=== PATIENT | male | born 1980 | race African-American/Black ===

== ENCOUNTER 2023-12-08 02:44 | Emergency (ER) | payer OTHER, SELFPAY ==
--- NOTE | ~2023-12-08 | XR_ITS ---
EXAMINATION: XR hand RT min 3V DATE: 12/08/2023 03:40 INDICATION: Dog bite to the distal phalanx of the right third digit TECHNIQUE: Posteroanterior, oblique and lateral views of the right hand were obtained. COMPARISON: None. FINDINGS: Extra articular fracture with small minimally displaced bone fragment along the radial margin of the base of the tuft of the right third distal phalanx. This should be considered open/compound given the reported clinical history of the penetrating dog bite injury with laceration. Bone alignment is othe rwise normal. No other fractures identified. Joint spaces are normal. IMPRESSION: 1. Small open/compound fracture at the radial side of the tuft of the right third distal phalanx. Dr. Torres discussed these findings with Dr. Sanchez at 7:39 AM. Reviewed, dictated and finalized at location A. IMPRESSION: 1. Small open/compound fracture at the radial side of the tuft of the right thi rd distal phalanx. Dr. Torres discussed these findings with Dr. Sanchez at 7:39 AM.
[2023-12-08 02:47] VITALS: BP 128/80; PULSE 122; RESP 17; TEMP 37.1; O2SAT 99
--- NOTE | 2023-12-08 03:10 | ED.GENADULT ---
HPI - General Adult General Chief complaint: Animal Bite Stated complaint: dog bite finger Time Seen by Provider: 12/08/23 02:53 History of Present Illness HPI narrative: this is a 43-year-old male presenting ED with chief complaint of dog bite. Patient is breaking up a fight between his own dogs and he was bit on the tip of his right middle finger. He has a small laceration. No other injuries. Related Data Allergies Allergy/AdvReac Type Severity Reaction Status Date / Time aspirin Allergy Unknown Unknown Verified 01/19/19 00:25 Exam Narrative: APPEARANCE: No apparent distress. Head: atraumatic. EYES: EOMI, NOSE: Atraumatic NECK: Trachea midline RESPIRATORY: No increased rate of breathing CARDIOVASCULAR: RRR, ABDOMINAL: Non-distended MUSCULOSKELETAl: The patient is a 1 cm laceration to the pad of his 3rd middle finger on the right hand. No exposed bone/tendon NEURO: Alert. Moving 4/4 extremities SKIN:: Warm, dry. Normal color PSYCHIATRIC: Normal affect Course Vital Signs Vital signs: Vital Signs Temperature 98.8 F 12/08/23 02:47 Pulse Rate 122 H 12/08/23 02:47 Respiratory Rate 17 12/08/23 02:47 Blood Pressure 128/80 12/08/23 02:47 Pulse Oximetry 99 12/08/23 02:47 Oxygen Delivery Room Air 12/08/23 02:47 Temperature 98.8 F 12/08/23 02:47 Pulse Rate 122 H 12/08/23 02:47 Respiratory Rate 17 12/08/23 02:47 Blood Pressure 128/80 12/08/23 02:47 Pulse Oximetry 99 12/08/23 02:47 Oxygen Delivery Room Air 12/08/23 02:47 Medical Decision Making [facility] Narrative Medical decision making narrative: -Course: 43-year-old presenting with dog bite. Patient given pain control and tetanus and antibiotics. No fractures on x-ray. Wound left open to lower risk of infection. Wound cleaned under the sink. Patient discharged course of Augmentin with primary care follow-up. Given return precautions for infection -Interventions: [place], tetanus, Augmentin -Shared decision making / Disposition: discharged -RX Augmentin, Motrin Tylenol Vital Signs Vital Signs: Vital Signs Temperature 98.8 F 12/08/23 02:47 Pulse Rate 122 H 12/08/23 02:47 Respiratory Rate 17 12/08/23 02:47 Blood Pressure 128/80 12/08/23 02:47 Pulse Oximetry 99 12/08/23 02:47 Oxygen Delivery Room Air 12/08/23 02:47 Temperature 98.8 F 12/08/23 02:47 Pulse Rate 122 H 12/08/23 02:47 Respiratory Rate 17 12/08/23 02:47 Blood Pressure 128/80 12/08/23 02:47 Pulse Oximetry 99 12/08/23 02:47 Oxygen Delivery Room Air 12/08/23 02:47 Discharge Plan Discharge Clinical Impression: Bite by animal Patient Disposition: Home, Self-Care Condition: Stable Instructions: Antibiotic Form, Animal Bite (ED) Additional Instructions: Use Motrin Tylenol for pain control. Take Augmentin as prescribed. If you develop signs of infection please return to the ED immediately. Otherwise follow-up with your primary care physician in next 3-5 days. Prescriptions: New ibuprofen 800 mg tablet 800 mg PO TID PRN (Reason: pain) 7 Days Qty: 21 0RF acetaminophen 500 mg tablet 1,000 mg PO TID PRN (Reason: jl) 7 Days Qty: 42 0RF amoxicillin-pot clavulanate 875-125 mg tablet 1 tablet PO Q12H Qty: 20 0RF Follow-up/Referrals: UNKNOWN,DOCTOR [Primary Care Provider] -
[2023-12-08] MEDS: HYDROcodone/acetaminophen (*CRX) 5-325 MG TABLET 1 TAB PO (03:19)
[2023-12-08] MEDS: AMOXICILLIN/CLAVULANATE K 875-125 MG TAB 1 TABLET PO (03:19)
[2023-12-08] MEDS: TETANUS,DIPHTHERIA,AC PERTUSSIS ADULT (0.5 ML) BOOSTRIX IM (03:19)
== END 2023-12-08 04:06 | disposition home or self-care (01) ==
PROVIDERS: Emergency Provider Emergency Medicine
DX: S61.252A Open bite of right middle finger without damage to nail, initial encounter (principal); Z23 Encounter for immunization; W54.0XXA Bitten by dog, initial encounter
CPT/HCPCS: 73130; 90471; 90715; 99283; A9270

== ENCOUNTER 2025-01-01 09:24 | Emergency (ER) | payer OTHER, SELFPAY ==
--- NOTE | ~2025-01-01 | XR_ITS ---
EXAMINATION: XR shoulder RT min 2V DATE: 01/01/2025 10:11 INDICATION: Ongoing right shoulder pain TECHNIQUE: AP internally and externally rotated, AP oblique externally rotated and transscapular Y vi ews of the right shoulder were obtained. COMPARISON: None FINDINGS: Normal alignment. No fracture. Glenohumeral joint is normal. Mild acromioclavicular osteoarthritis. Soft tissues are unremarkable. Right lung is clear. IMPRESSION: Mild right acromioclavicular osteoarthritis. No acute osseous abnormality. Reviewed, dictated and finalized at location A.
[2025-01-01 09:48] VITALS: BP 150/79; PULSE 100; RESP 18; TEMP 37; O2SAT 98
--- NOTE | 2025-01-01 10:36 | ED.UPPEXIN ---
HPI - Extremity Injury (Upper) General Chief Complaint: Extremity Injury, Upper Stated Complaint: requesting R shoulder xray Time Seen by Provider: 01/01/25 10:28 History of Present Illness HPI narrative: 44-year-old male presents to the emergency department for right shoulder pain for the past few weeks. Patient states the pain is located stress which was right shoulder along the shoulder blade into the shoulder joint. He states the pain is worse with movement of his right shoulder and when he lays on his right shoulder at night. He states he works at a [employer] and uses his arms and hands a lot at work which seem to exacerbate his symptoms. Denies direct injury or trauma. No fevers. Denies other complaints. Related Data Allergies Allergy/AdvReac Type Severity Reaction Status Date / Time aspirin Allergy Unknown Unknown Verified 01/13/24 15:55 Review of Systems Review of Systems: All systems reviewed & are unremarkable except as noted in HPI and below PMFSH Social History Social History Smoking status: Never smoker Exam Narrative: GENERAL: Well-appearing, well-nourished, and in no acute distress. HEAD: Normocephalic, atraumatic. ENT: Nares clear, no rhinorrhea or epistaxis. Mucous membranes moist. NECK: Supple. No midline cervical spinous tenderness, crepitus, step-offs or deformities BACK: No midline thoracic lumbar spinous tenderness, crepitus, step-offs or deformities. Tenderness to the right paraspinous muscles CHEST: Clear to auscultation. No respiratory distress. HEART: Regular rate and rhythm. No murmur heard. Normal peripheral pulses. EXTREMITIES: RUE: Mild tenderness to palpation of the posterior shoulder, acromion, AC joint and proximal humerus. No obvious swelling or deformity. Patient has full active passive range of motion of shoulder without difficulty. Pain is reproduced with Neer's test. Radial pulses 2+. Radial, median, ulnar and axillary nerves and test. Strength 5/5. SKIN: Warm, dry, no rash. NEURO: No focal deficits. Alert and oriented x3 Course Vital Signs Vital signs: Vital Signs Temperature 98.6 F 01/01/25 09:48 Pulse Rate 100 01/01/25 09:48 Respiratory Rate 18 01/01/25 09:48 Blood Pressure 150/79 H 01/01/25 09:48 Pulse Oximetry 98 01/01/25 09:48 Oxygen Delivery Room Air 01/01/25 09:48 Temperature 98.6 F 01/01/25 09:48 Pulse Rate 100 01/01/25 09:48 Respiratory Rate 18 01/01/25 09:48 Blood Pressure 150/79 H 01/01/25 09:48 Pulse Oximetry 98 01/01/25 09:48 Oxygen Delivery Room Air 01/01/25 09:48 MDM - Extremity Injury (Upper) MDM Narrative Medical decision making narrative: 44-year-old male presents to the emergency department for atraumatic right shoulder pain for the past several weeks. Pain is worse with movement of the shoulder and when lying on his right shoulder at night. Vital signs with elevated blood pressure, otherwise unremarkable. Exam is notable for the above. Patient is neurovascularly intact. X-ray of the shoulder shows mild right AC osteoarthritis with no acute osseous abnormality. Patient updated on results. Suspect shoulder strain versus shoulder impingement. Will provide Flexeril, naproxen, lidocaine patches. Advised follow-up with PCP. Discussed strict ED return precautions. Patient is agreeable with the plan verbalized understanding. Discharged in stable condition. Discharge Plan Discharge Clinical Impression: Acute pain of right shoulder Patient Disposition: Home Condition: Stable Instructions: Antibiotic Form, Shoulder Pain (ED) Additional Instructions: Please rest, take medications as prescribed use warm compresses as discussed. Follow-up with PCP. Return to the emergency department if he develops significantly worsening pain, chest pain shortness of breath, fever or other concerning symptoms. Patient Language: Armenian Prescriptions: New cyclobenzaprine 10 mg tablet 10 mg PO TID PRN (Reason: muscle spasm) Qty: 14 0RF lidocaine 5 % adhesive patch,medicated 1 patch topical DAILY Qty: 15 0RF Rx Instructions: leave on most painful area for up to 12 hrs. do not use more than 1 patch in a 24-hour period. ibuprofen 800 mg tablet 800 mg PO TID PRN (Reason: pain) Qty: 20 0RF No Action ibuprofen 800 mg tablet 800 mg PO TID PRN (Reason: pain) 7 Days Qty: 21 0RF acetaminophen 500 mg tablet 1,000 mg PO TID PRN (Reason: jl) 7 Days Qty: 42 0RF amoxicillin-pot clavulanate 875-125 mg tablet 1 tablet PO Q12H Qty: 20 0RF Follow-up/Referrals: Cristy Larios DO [Physician] - PHYSICIAN,INSURANCE AGENCY SALES MANAGER [Primary Care Provider] -
[2025-01-01 10:56] VITALS: BP 146/112; PULSE 94; TEMP 36.8; O2SAT 98
== END 2025-01-01 11:09 | disposition home or self-care (01) ==
LOC: ANHED 10:53
PROVIDERS: Emergency Provider Physician Assistant
DX: M25.511 Pain in right shoulder (principal)
CPT/HCPCS: 73030; 99283

== ENCOUNTER 2025-01-28 19:23 | Emergency (ER) | payer OTHER, SELFPAY ==
--- NOTE | ~2025-01-28 | CT_ITS ---
Noncontrast CT scan of the cervical spine Technique: Multiple contiguous axial [address] images of the cervical spine were obtained and rec onstructed in 2D sagittal and coronal planes on the acquisition scanner. Dose reduction technique was used on this scan by utilizing automated exposure control, adjustment of the mA and/or kV according to patient size. The dose-length product (DLP) was 596.43 mGy-cm. Clinical History: Pain Findings: No fractures or dislocations. There is mild reversal of normal cervical lordosis. There is moderate degenerative distended C5-C6 and C6-C7. There is scattered facet joint degenerative changes . There is left neural foraminal narrowing at C3-C4. No prevertebral soft tissue swelling. Impression: No fracture or subluxation of the cervical spine. Reviewed, dictated and finalized at [facility]. Impression: No fracture or subluxation of the cervical spine.
--- NOTE | ~2025-01-28 | CT_ITS ---
Noncontrast CT scan of the right shoulder spine CLINICAL HISTORY: Pain, ecchymosis TECHNIQUE: Axial noncontrast imaging of the right shoulder spine was performed. Sagittal and coronal reformatted images were constructed. Dose reduction technique was used on this scan by utilizing auto mated exposure control and iterative reconstruction technique. The dose-length product (DLP) was 562. 87 mGy-cm. FINDINGS: No acute fracture or dislocation seen. Joint spaces are preserved. No significant degenerat donna change. No erosive change evident. No joint effusion identified. Visualized musculature is unremarkable. No soft tissue mass or fluid collection. Visualized right cuco g is clear. Impression: Unremarkable exam. Reviewed, dictated and finalized at location M. Impression: Unremarkable exam.
--- NOTE | ~2025-01-28 | CT_ITS ---
Noncontrast CT scan of the right humerus spine CLINICAL HISTORY: Pain, ecchymosis TECHNIQUE: Axial noncontrast imaging of the right humerus spine was performed. Sagittal and coronal r eformatted images were constructed. Dose reduction technique was used on this scan by utilizing autom ated exposure control and iterative reconstruction technique. The dose-length product (DLP) was 898.6 7 mGy-cm. FINDINGS: No acute fracture or dislocation seen. Visualized joint spaces are intact. No degenerative, erosive change. No joint effusion identified. Visualized musculature unremarkable. No soft tissue mass or fluid collection seen. Subcutaneous soft tissues are unremarkable. Impression: No significant abnormality seen. Reviewed, dictated and finalized at location . Impression: No significant abnormality seen.
[2025-01-28 19:39] VITALS: BP 148/81; PULSE 92; RESP 18; TEMP 36.8; O2SAT 100
[2025-01-28 22:56] VITALS: PULSE 91; RESP 14; O2SAT 98
[2025-01-28 23:00] VITALS: PULSE 102; RESP 17; O2SAT 100
[2025-01-28 23:01] VITALS: BP 147/86; PULSE 93; RESP 30; O2SAT 100
[2025-01-28 23:37] VITALS: PULSE 77; RESP 15; O2SAT 99
[2025-01-28 23:45] VITALS: PULSE 88; RESP 16; O2SAT 99
[2025-01-29] VITALS (18 sets, daily range): BP systolic 97–145; BP diastolic 69–93; PULSE 62–108; RESP 11–29; O2SAT 97–100
--- NOTE | 2025-01-29 00:25 | ED.UPPEXIN ---
HPI - Extremity Injury (Upper) General Chief Complaint: Extremity Injury, Upper Stated Complaint: Pain right shoulder/arm- Time Seen by Provider: 01/28/25 23:32 Source: patient Mode of arrival: ambulatory Limitations: no limitations History of Present Illness HPI narrative: Patient presents with R shoulder / arm pain, going on 1 month. Seen for the same 2 weeks ago but now with new/unexplained bruise at bicep and intermittent numbness of his ulnar aspect forearm and palm of hand. Denies any preceding trauma or interval trauma. Denies other random bruising or unexplained bleeding or issues with bleeding such as from gums. Had been prescribed flexeril and ibuprofen but out of these meds. Still has lidocaine patches. Did not go to PCP/ED follow up appointment that had been made for this morning. Related Data Allergies Allergy/AdvReac Type Severity Reaction Status Date / Time acetaminophen Allergy Intermediate Hives Verified 01/28/25 19:41 [facility] Social History Social History Smoking status: Never smoker Occupation/Education: occupation Exam Narrative: GENERAL: Well-appearing, well-nourished, and in no acute distress. HEAD: Normocephalic, atraumatic. EYES: Non injected, non icteric ENT: Nares clear, no rhinorrhea or epistaxis. Gross auditory acuity intact. NECK: Supple. No meningismus. CHEST: Speaking in full sentences. No respiratory distress. HEART: Regular rate and rhythm. . ABDOMEN: Soft, nondistended. No rigidity or guarding. Not peritoneal EXTREMITIES: Normal range of motion. No upper extremity edema. 5/5 strength with elbow flexion/extension and full ROM of wrist and fingers. Radial pulse intact, not diminished. SKIN: Warm, dry. Ecchymotic lesion mid right upper extremity. No hematoma. No erythema/induration along forearm or hand. COmpartments soft. NEURO: No focal deficits. Alert and oriented. Answering questions. Following commands. Normal speech without aphasia or dysarthria. Sensation intact throughout forearm and hand/fingers. PSYCH: Normal mood and affect. Course Vital Signs Vital signs: Vital Signs Temperature 98.2 F 01/28/25 19:39 Pulse Rate 92 01/28/25 19:39 Respiratory Rate 18 01/28/25 19:39 Blood Pressure 148/81 H 01/28/25 19:39 Pulse Oximetry 100 08/07/25 19:39 Oxygen Delivery Room Air 01/28/25 19:39 Temperature 98.2 F 01/28/25 19:39 Pulse Rate 68 01/29/25 04:01 Respiratory Rate 12 01/29/25 04:01 Blood Pressure 145/93 H 01/29/25 01:46 Pulse Oximetry 98 01/29/25 04:01 Oxygen Delivery Room Air 01/28/25 19:39 MDM - Extremity Injury (Upper) MDM Narrative Medical decision making narrative: Patient presents with R shoulder/arm pain of >1 months duration. Seen for this in the ED but now with spontaneous ecchymotic lesion mid bicep and intermittent paresthesias along ulnar aspect of forearm and into palm of hand. In the emergency department he is afebrile with vital signs notable for hypertension. Reassuring physical exam, neurovascularly intact. The distribution of his paresthesias would suggest an ulnar nerve issue. Normocytic anemia, stable from previous. Platelets normal. Hyperglycemia without anion gap acidosis. CT imaging negative for acute issue. Advised continue NSAIDs and follow up. Otherwise stable for discharge. Differential Diagnosis Differential diagnosis: Likely other (bicep tear, coagulopathy; ulnar nerve entrapment; compartment syndrome) Medical Records Attestation: I reviewed the patient's medical records. Medical records narrative: Reviewed prior ED note and imaging. Lab Data Attestation: I reviewed the patient's lab results. 01/29/25 00:50 01/29/25 00:50 Labs: Lab Results 01/29/25 01/29/25 Range/Units 00:50 01:48 WBC 5.6 (4.5-10.0) K/mm3 RBC 4.14 L (4.6-6.20) M/mm3 Hgb 11.6 L (14.0-18.0) g/dL Hct 36.3 L (42.0-52.0) % MCV 87.7 (80-100) fl MCH 28.0 (26-34) pg MCHC 32.0 (32-36) g/dl RDW 12.8 (11.5-14.5) % Plt Count 252 (150-375) k/mm3 MPV 9.9 (7.4-10.4) fl Immature Gran % (Auto) 0.2 (0-0.5) % Neut % (Auto) 46.6 (45.5-73.1) % Lymph % (Auto) 41.2 (18.3-44.2) % [place] % (Auto) 7.0 (2.6-8.5) % Eos % (Auto) 4.5 H (0-4.4) % Baso % (Auto) 0.5 (0.2-1.2) % Lymph # (Auto) 2.29 (0.9-3.2) K/mm3 [place] # (Auto) 0.4 (0.1-0.6) K/mm3 Eos # (Auto) 0.3 (0-0.3) K/mm3 Baso # (Auto) 0.0 (0.0-0.1) K/mm3 Abs Immat Gran (auto) 0.01 (0.00-0.031) K/mm3 Absolute Neuts (auto) 2.6 (1.3-6.7) K/mm3 Absolute Nucleated RBC 0.000 (0.0-0.012) K/mm3 Nucleated RBC % 0.0 (0.0-0.2) % ESR 11 (0-20) mm/hr PT 13.6 (11.1-14.7) Seconds INR 1.0 APTT 26.4 (22.3-36.8) Seconds Sodium 135 L (137-145) mmol/L Potassium 3.8 (3.4-5.0) mmol/L Chloride 105 (98-107) mmol/L Carbon Dioxide 23 (22-30) mmol/L Anion Gap 7 (4-12) mmol/L BUN 5 L (9-20) mg/dL Creatinine 0.75 (0.7-1.3) mg/dL Estim Creat Clear Calc 136 ml/min Estimated GFR > 60 (59 - ) Glucose 183 H (65-110) mg/dL Calcium 8.9 (8.4-10.2) mg/dL Magnesium 1.8 (1.6-2.3) mg/dL Total Bilirubin 0.4 (0.2-1.3) mg/dL AST 26 (17-59) U/L ALT 23 (6-50) U/L Alkaline Phosphatase 66 (38-126) U/L Total Creatine Kinase 174 H (55-170) U/L C-Reactive Protein < 0.5 (<1.0) mg/dL Total Protein 6.3 (6.3-8.2) g/dL Albumin 3.5 (3.5-5.1) g/dL Imaging Data Radiologist's impression: CT C-spine without contrast Stat Rad: The vertebral body heights are maintained. The craniocervical junction is intact. The atlanto dens interval is maintained. The dens is intact. There is no spondylolisthesis. Multilevel cervical spondylosis and degenerative disc disease. Straightening of the cervical lordosis. Impression: No acute fracture subluxation of the cervical spine. CT right shoulder stat rad: No acute fracture dislocation. No hematoma. Normal CT of the shoulder. CT extremity right upper stat Rad: No fracture of the humerus. If there is concern for soft tissue or nerve injury, recommend MRI. Subcutaneous edema and skin thickening along the ulnar aspect of the posterior elbow, correlate for cellulitis. No elbow joint effusion. No soft tissue hematoma. Discharge Plan Discharge Clinical Impression: Normocytic anemia, Hyperglycemia, Arm bruise, Ulnar nerve abnormality Patient Disposition: Home Condition: Stable Instructions: Antibiotic Form, Paresthesia (ED), Anemia (ED), Ecchymosis (ED) Additional Instructions: No clear cause of your symptoms based on your lab work or imaging. The distribution of the numbness and tingling you are experiencing is consistent an ulnar nerve issue. Follow-up with your primary care physician as you may require advanced imaging such as MRI, physical therapy, alternative pain medication, etc. because you do not have a primary care physician, the name of a doctor is listed below. NSAIDs (ibuprofen/Motrin) can help with the inflammation. Patient Language: Urdu Prescriptions: New ibuprofen 600 mg tablet 600 mg PO TID PRN (Reason: pain) Qty: 30 0RF No Action ibuprofen 800 mg tablet 800 mg PO TID PRN (Reason: pain) 7 Days Qty: 21 0RF acetaminophen 500 mg tablet 1,000 mg PO TID PRN (Reason: jl) 7 Days Qty: 42 0RF amoxicillin-pot clavulanate 875-125 mg tablet 1 tablet PO Q12H Qty: 20 0RF cyclobenzaprine 10 mg tablet 10 mg PO TID PRN (Reason: muscle spasm) Qty: 14 0RF lidocaine 5 % adhesive patch,medicated 1 patch topical DAILY Qty: 15 0RF Rx Instructions: leave on most painful area for up to 12 hrs. do not use more than 1 patch in a 24-hour period. ibuprofen 800 mg tablet 800 mg PO TID PRN (Reason: pain) Qty: 20 0RF Follow-up/Referrals: PHYSICIAN,PATHOLOGY SECRETARY [Primary Care Provider] - Edvin Stinson MD [Physician] - Stand Alone Forms: Work/School Release IP Time of Disposition: 03:45
[2025-01-29] MEDS: oxyCODONE HCL (*CRX) 5 MG TAB IR PO (00:48)
[2025-01-29 00:57] LABS: Hematocrit 36.3 % (42.0-52.0); Hemoglobin 11.6 g/dL (14.0-18.0); Immature Granulocyte Percent A 0.2 % (0-0.5); Lymphocytes Absolute Auto 2.29 K/mm3 (0.9-3.2); Mean Corpuscular HGB Conc 32.0 g/dl (32-36); Mean Corpuscular Hemoglobin 28.0 pg (26-34); Mean Corpuscular Volume 87.7 fl (80-100); Nucleated Red Blood Cells Absolute Auto 0.000 K/mm3 (0.0-0.012); Nucleated Red Blood Cells Perc 0.0 % (0.0-0.2); Platelet Count Result 252 k/mm3 (150-375); Red Blood Count 4.14 M/mm3 (4.6-6.20); White Blood Count 5.6 K/mm3 (4.5-10.0)
[2025-01-29 01:10] LABS: Alanine Aminotransferase 23 U/L (6-50); Albumin Level 3.5 g/dL (3.5-5.1); Alkaline Phosphatase 66 U/L (38-126); Anion Gap 7 mmol/L (4-12); Aspartate Amino Transferase 26 U/L (17-59); Bilirubin,Total 0.4 mg/dL (0.2-1.3); Blood Urea Nitrogen 5 mg/dL (9-20); CRP < 0.5 mg/dL (<1.0); Calcium 8.9 mg/dL (8.4-10.2); Carbon Dioxide 23 mmol/L (22-30); Chloride 105 mmol/L (98-107); Creatine Kinase 174 U/L (55-170); Estimated CRCL calculation 136 ml/min; Estimated Glomerular Filt Rate > 60; Glucose 183 mg/dL (65-110); Magnesium 1.8 mg/dL (1.6-2.3); Potassium 3.8 mmol/L (3.4-5.0); Sodium 135 mmol/L (137-145); Total Protein 6.3 g/dL (6.3-8.2)
[2025-01-29 02:04] LABS: INR 1.0; Prothrombin Time 13.6 Seconds (11.1-14.7)
[2025-01-29 02:05] LABS: Partial Thromboplastin Time 26.4 Seconds (22.3-36.8)
[2025-01-29] MEDS: KETOROLAC 30 MG/ML VIAL (*BKC) IM (04:05)
== END 2025-01-29 04:09 | disposition home or self-care (01) ==
PROVIDERS: Emergency Provider Student in an Organized Health Care Education/Training Program
DX: M79.81 Nontraumatic hematoma of soft tissue (principal); G58.9 Mononeuropathy, unspecified; D64.9 Anemia, unspecified; R73.9 Hyperglycemia, unspecified
CPT/HCPCS: 36415; 72125; 73200; 80053; 82550; 83735; 85025; 85610; 85652; 85730; 86140; 96372; 99284; A9270; J1885